=== PATIENT | female | born 1965 | race Caucasian/White ===

== ENCOUNTER 2020-02-25 21:00 | Emergency (ER) | payer MEDICAID ==
[~2020-02-25] VITALS: Ht 152.4 cm; Wt 50.0 kg
[2020-02-25 21:03] VITALS: BP 137/76
[2020-02-25] MEDS ORDERED: CYCLOBENZAPRINE 10MG TABLET PO ONE (21:30)
[2020-02-25] MEDS ORDERED: KETOROLAC 30MG/ML VIAL IM ONE (21:30)
== END 2020-02-25 23:30 | disposition home or self-care (01) ==
LOC: ER 21:00
DX: M54.2 Cervicalgia (principal); M25.78 Osteophyte, vertebrae; Z88.1 Allergy status to other antibiotic agents; Z88.0 Allergy status to penicillin
CPT/HCPCS: 72125; 96372; 99284; J1885